=== PATIENT | female | born 1975 ===

== ENCOUNTER → 2025-10-01 09:45 | Outpatient (REF) | payer OTHER, SELFPAY | LOC: RCS 09:45 | PROVIDERS: ATTENDING PHYSICIAN Internal Medicine; FAMILY PHYSICIAN Family Medicine | DX: R07.9 Chest pain, unspecified (principal); I45.6 Pre-excitation syndrome; F12.90 Cannabis use, unspecified, uncomplicated; E78.2 Mixed hyperlipidemia; Z82.49 Family history of ischemic heart disease and other diseases of the circulatory system; I10 Essential (primary) hypertension; E66.9 Obesity, unspecified | CPT/HCPCS: 93017 ==